=== PATIENT | male | born 1960 | race Two or more races ===

== ENCOUNTER 2019-09-14 09:40 | Emergency (ER) | payer OTHER ==
[~2019-09-14] VITALS: Ht 172.7 cm; Wt 74.8 kg
[2019-09-14] MEDS ORDERED: DIAZEPAM INJ 5 MG/ML 2 ML IV NR (10:15)
[2019-09-14] MEDS ORDERED: SODIUM CHLORIDE 0.9% 1000ML 1,000 ML IV SCH (10:15)
--- NOTE | 2019-09-14 10:47 | Diagnostic Imaging Report ---
EXAMINATION: CXR 2 VIEW - HOPD INDICATION: Dizziness, loss of consciousness COMPARISON: None FINDINGS: LINES/TUBES:None LUNGS:The lungs are well-inflated. No focal consolidation or pulmonary edema. PLEURA:No pleural effusion or pneumothorax. MEDIASTINUM:The cardiomediastinal silhouette appears normal in size and shape. Atherosclerotic calcifications of the thoracic aorta. BONES/SOFT TISSUES:No acute osseous injury. ABDOMEN:No free air under the diaphragm. IMPRESSION: No focal pneumonia or pulmonary edema. Signed by: Sho Olmstead MD on 09/14/2019 10:45 AM
--- NOTE | 2019-09-14 11:32 | Diagnostic Imaging Report ---
EXAMINATION: Head and cervical spine CT without contrast. HISTORY: Status post fall 3 days ago, dizziness, LOC, syncope. COMPARISON: None. TECHNIQUE: Multidetector axial images were obtained without contrast from the foramen magnum to the vertex and through the cervical spine. The images were reconstructed using brain and bone algorithms. Thin section brain images were reformatted into coronal and sagittal planes. Dose modulation, iterative reconstruction, and/or weight based adjustment of the mA/kV was utilized to reduce the radiation dose to as low as reasonably achievable. HEAD CT FINDINGS: Skull/scalp: No lytic or blastic lesions. No fractures. Parenchyma: Few scattered white matter hypodensities, most likely nonspecific chronic microvascular ischemic changes. No mass, hemorrhage or CT evidence of acute vascular insult. Brain volume: Normal for age. Ventricles: No hydrocephalus or displacement. Arteries: No density suggestive of thrombus. Dural sinuses: No abnormal density. Extra-axial spaces: No abnormal density. Foramen magnum: No mass, Chiari malformation, or basilar invagination. Sella: No obvious mass. Paranasal/mastoid sinuses: Imaged portions unremarkable. CERVICAL SPINE CT FINDINGS: Alignment:Kyphotic malalignment centered at C3-C4. Minimal retrolisthesis at C3-C4 Soft tissues: Normal. Vertebrae: Diffuse increased density of the vertebral bodies from C3 to C5, with prominent endplate osteophytes. Status post ACDF with solid interbody fusion from C5 to C7. An anterior intervertebral small plate is seen at C4-C5 without solid fusion. Degenerative changes: C1-C2: Normal C2-C3: Minimal uncovertebral hypertrophy is without stenoses C3-C4: Small disc osteophyte compresses mentioned, bilateral uncovertebral and facet arthrosis. Mild foramina narrowing. C4-C5: Surgical level without focal effusion, disc osteophyte complex formation, bilateral uncovertebral arthrosis. Moderate foraminal stenoses worst on the right. C5-C6: Few surgical levels without stenosis. C6-C7: Diffuse surgical level with mild bilateral foraminal stenosis. C7-T1: Disc osteophyte formation and bilateral facet arthrosis worst on the left. No significant stenosis. IMPRESSION: Head CT: 1. No acute post traumatic intracranial abnormalities, particularly no hemorrhage. 2. Mild hematocrit mental status changes. Cervical spine CT: 1. No acute fractures or dislocations. 2. Kyphotic malalignment at C3-C4 and minimal millicuries he was at C4-C5. 3. Postoperative changes as detailed above. 4. Chronic degenerative changes as described. Note: Acute post traumatic spinal cord, vascular or ligamentous injury cannot adequately be assessed with CT. Signed by: Dr. Maryuri Weiss M.D. on 09/14/2019 11:29 AM
[2019-09-14] MEDS ORDERED: DIAZEPAM INJ 5 MG/ML 2 ML ONE (11:38)
[2019-09-14] MEDS ORDERED: SODIUM CHLORIDE 0.9% 1000ML 1,000 ML ONE (11:38)
[2019-09-14] MEDS ORDERED: ZOFRAN4 MG PO (11:50)
[2019-09-14] MEDS ORDERED: MECLIZINE HCL12.5 MG PO (11:50)
[2019-09-14 12:02] VITALS: BP 166/90
[2019-09-14] MEDS ORDERED: KETOROLAC TROMETHAMINE 30 MG/ML VIAL IV STA (12:07)
== END 2019-09-14 12:19 | disposition home or self-care (01) ==
LOC: FSED 09:40
DX: R42 Dizziness and giddiness (principal); R51 Headache; R55 Syncope and collapse; W18.30XA Fall on same level, unspecified, initial encounter; Y92.002 Bathroom of unspecified non-institutional (private) residence as the place of occurrence of the external cause; F41.9 Anxiety disorder, unspecified; G62.9 Polyneuropathy, unspecified; M54.2 Cervicalgia; G89.29 Other chronic pain
CPT/HCPCS: 70450; 71046; 72125; 80053; 81003; 84484; 85025; 87400; 93005; 99284; J1885; J3360; J7030